=== PATIENT | female | born 1945 | race Caucasian/White ===

== ENCOUNTER 2024-01-13 12:19 | Emergency (ER) | payer OTHER, BC ==
[2024-01-13 13:28] VITALS: BP 148/83; PULSE 78; RESP 20; TEMP 98; BMI 22.7
== END 2024-01-13 13:49 | disposition home or self-care (01) ==
LOC: FER 12:19
DX: S30.860A Insect bite (nonvenomous) of lower back and pelvis, initial encounter (principal); S30.861A Insect bite (nonvenomous) of abdominal wall, initial encounter; L29.9 Pruritus, unspecified; W57.XXXA Bitten or stung by nonvenomous insect and other nonvenomous arthropods, initial encounter
CPT/HCPCS: 99283-25

== ENCOUNTER 2024-08-19 06:17 | Day surgery (SDC) | payer OTHER, BC ==
[2024-08-13 10:49] VITALS: BMI 24.9
[2024-08-19] MEDS ORDERED: BUPIVACAINE HCL/PF 0.25% (2.5MG/ML) 10 ML VIAL ONE (07:16)
[2024-08-19] MEDS ORDERED: MIDAZOLAM HCL 2 MG/2 ML SINGLE DOSE VIAL ONE (07:27)
[2024-08-19] MEDS ORDERED: SUCCINYLCHOLINE CHLORIDE 200 MG/10 ML SYRINGE ONE (07:27)
[2024-08-19] MEDS ORDERED: PROPOFOL 40 ML ONE (07:27)
[2024-08-19] MEDS ORDERED: LIDOCAINE HCL/PF 2% SDV 5ML VIAL ONE (07:53)
[2024-08-19] MEDS ORDERED: ceFAZolin SODIUM 1 GM VIAL ONE (07:53)
[2024-08-19] MEDS ORDERED: DEXAMETHASONE SOD PHOSPHATE 4 MG/1 ML VIAL ONE (07:53)
[2024-08-19] MEDS ORDERED: ONDANSETRON 4 MG/2 ML VIAL ONE (07:53)
[2024-08-19] MEDS: BUPIVACAINE HCL/PF 0.25% (2.5MG/ML) 10 ML VIAL IJ ONE (08:03)
[2024-08-19] MEDS ORDERED: FENTANYL CITRATE/PF 50 MCG/ML VIAL ONE ×2 (08:44→09:05)
[2024-08-19] MEDS ORDERED: LACTATED RINGERS SOLUTION 1,000 ML IV SCH (08:45)
[2024-08-19] MEDS ORDERED: oxyCODONE HCL 5 MG TABLET PO PRN (08:45)
[2024-08-19] MEDS ORDERED: KETOROLAC TROMETHAMINE 30 MG/1 ML VIAL ONE (08:45)
[2024-08-19] MEDS: KETOROLAC TROMETHAMINE 15 MG/ML VIAL IVPUSH PRN (08:50)
[2024-08-19] MEDS: ONDANSETRON 4 MG/2 ML VIAL IVPUSH PRN (08:59)
[2024-08-19] MEDS: PROMETHAZINE HCL 25 MG/1 ML VIAL IVPB PRN (09:20)
[2024-08-19] MEDS ORDERED: PROMETHAZINE HCL 25 MG/1 ML VIAL ONE (09:23)
[2024-08-19 09:53] VITALS: PULSE 79
[2024-08-19 10:18] VITALS: BP 153/90; RESP 20; TEMP 96.9
== END 2024-08-19 10:40 | disposition home or self-care (01) ==
LOC: FASU 06:17
PROVIDERS: ATTEND Orthopaedic Surgery Sports Medicine
PROC: 0SQC4ZZ Repair Right Knee Joint, Percutaneous Endoscopic Approach (ICD-10-PCS; 2024-08-19)
PROC: 0SBC4ZZ Excision of Right Knee Joint, Percutaneous Endoscopic Approach (ICD-10-PCS; principal; 2024-08-19 08:03)
DX: S83.241A Other tear of medial meniscus, current injury, right knee, initial encounter (principal); M24.19 Other articular cartilage disorders, other specified site; X58.XXXA Exposure to other specified factors, initial encounter; Y93.9 Activity, unspecified; Y92.9 Unspecified place or not applicable
CPT/HCPCS: 94760